=== PATIENT | female | born 1955 | race Caucasian/White ===

== ENCOUNTER 2017-03-09 14:59 | Emergency (ER) | payer MEDICARE, OTHER ==
[2017-03-09 15:06] VITALS: BP 146/84
[2017-03-09] MEDS ORDERED: Prochlorperazine 10 MG in Sodium Chloride 0.9% 50 ML IV ONE (15:22)
[2017-03-09] MEDS ORDERED: Ondansetron 4 MG/2 ML SDV IVPUSH ONE (15:22)
[2017-03-09] MEDS ORDERED: Sodium Chloride 0.9% 1,000 ML IV ONE (15:22)
[2017-03-09] MEDS ORDERED: Ketorolac 30 MG/ML SDV IVPUSH ONE (15:22)
[2017-03-09] MEDS ORDERED: diphenhydrAMINE 50 MG/ML SDV IVPUSH ONE (15:22)
--- NOTE | 2017-03-09 15:28 | EDM.PDOC ---
<Reena Jean Baptiste - Last Filed: 03/09/17 15:47> ED HPI GENERAL MEDICAL PROBLEM - General Chief Complaint: Headache Stated Complaint: MIGRAINE Time Seen by Provider: 03/09/17 15:07 Source of Information: Reports: Patient History Limitations: Reports: No Limitations - History of Present Illness INITIAL COMMENTS - FREE TEXT/NARRATIVE: The patient is a 61-year-old female with a chief complaint of headache. She has a history of migraines and also of chronic back pain. She states that she started to feel a little uncomfortable yesterday and then her headache got much worse today. Describes it as throbbing. It's in the front of her head. Pain is severe. She has some associated nausea and has had many episodes of vomiting. States she is unable to keep any medications down at home. No fever. No weakness. No neck stiffness. States it feels like a migraine but worse. There is no clear provoking factor. States that she has had a mild cough and a mild stuffy nose. Hasn't had a migraine in about 3 years. Headache Pain Score (Numeric/FACES): 10 - Related Data Allergies Allergy/AdvReac Type Severity Reaction Status Date / Time Sulfa (Sulfonamide Allergy Hives Verified 10/14/15 13:08 Antibiotics) bupropion HCl AdvReac Tremors Verified 10/14/15 13:08 [From Wellbutrin] ibuprofen AdvReac Bleeding Verified 10/14/15 13:08 Home Meds: Home Meds Methocarbamol 2 tab PO TID 12/13/13 [History] Promethazine [Phenergan] 25 mg PO Q6HR PRN 12/18/13 [History] DULoxetine [Cymbalta] 120 mg PO DAILY 01/08/14 [History] Acetaminophen [Tylenol Arthritis Pain] 3 tab PO BID PRN 04/22/15 [History] Buprenorphine HCl/Naloxone HCl [Suboxone 4 mg-1 mg Sl Film] 1 tab SL DAILY 04/22 [History] Multivitamin [Daily Multiple Vitamin] 1 tab PO DAILY 04/22/15 [History] PARoxetine [Paxil] 30 mg PO DAILY 04/22/15 [History] Lidocaine 1 patch TOP DAILY 03/09/17 [History] Non-Formulary Medication [NF Drug] 1 dose TOP DAILY 03/09/17 [History] Prednisone [IJD: Prednisone] 10 mg PO DAILY 03/09/17 [History] cloNIDine [Catapres] 0.1 mg PO BID 03/09/17 [History] Past Medical History Gastrointestinal History: Reports: [employer] History: Reports: Fibroids Other OB/BYN History: uterine fibroids, endometriosis Musculoskeletal History: Reports: Back Pain, Chronic Other Musculoskeletal History: spinal stenosis, degenerative disks, right lateral shoulder tear Neurological History: Reports: Migraines, Neuropathy, Peripheral Other Neuro History: neuropathic pain Psychiatric History: Reports: Anxiety, Depression Other Psychiatric History: chronic pain syndrome Oncologic (Cancer) History: Reports: Other (See Below) Other Oncologic History: precancerous lesions Dermatologic History: Reports: Other (See Below) Other Dermatologic History: herpes labialsis - Infectious Disease History Infectious Disease History: Reports: Herpes - Past Surgical History GI Surgical History: Reports: Cholecystectomy Female Surgical History: Reports: Hysterectomy Social & Family History - Family History Family Medical History: Noncontributory Respiratory: Reports: COPD - Tobacco Use Smoking Status *Q: Current Every Day Smoker Years of Tobacco use: 8 Packs/Tins Daily: 1 Used Tobacco, but Quit: No Second Hand Smoke Exposure: Yes - Alcohol Use Days Per Week of Alcohol Use: 0 (etoh abuse in past. none for 30 years) - Recreational Drug Use Recreational Drug Use: No Drug Use in Last 12 Months: No Recreational Drug Type: Reports: Marijuana/Hashish Recreational Drug Use Frequency: Not Used In Over 6 Months ED ROS GENERAL - Review of Systems Review Of Systems: See Below Constitutional: Reports: No Symptoms. Denies: Fever HEENT: Reports: Rhinitis Respiratory: Reports: Cough Cardiovascular: Reports: No Symptoms Endocrine: Reports: No Symptoms GI/Abdominal: Reports: Nausea, Vomiting. Denies: Abdominal Pain : Reports: No Symptoms Neurological: Reports: Headache. Denies: Paresthesia, Weakness - Physical Exam Exam: See Below Exam Limited By: No Limitations General Appearance: Alert, WD/WN, Moderate Distress Eye Exam: Bilateral Eye: EOMI, PERRL Ears: Normal External Exam Nose: Normal Inspection Throat/Mouth: Normal Inspection, Normal Oropharynx, Normal Voice, No Airway Compromise Head Exam: Atraumatic, Normocephalic Neck: Normal Inspection Respiratory/Chest: No Respiratory Distress, Lungs Clear, Normal Breath Sounds Cardiovascular: Normal Peripheral Pulses, Regular Rate, Rhythm, No Murmur GI/Abdominal: Soft, Non-Tender, No Distention. No: Rebound Neuro Exam (Abbreviated): Alert, Oriented, CN II-XII Intact, Normal Cognition, No Motor/Sensory Deficits Extremities: Normal Inspection Psychiatric: Normal Affect, Normal Mood Skin Exam: Warm, Dry, Intact, Normal Color, No Rash Course - Vital Signs Last Recorded V/S: Last Vital Signs Temp 97.7 F 03/09/17 15:03 Pulse 90 03/09/17 15:03 Resp 16 03/09/17 15:03 BP 146/84 H 03/09/17 15:03 Pulse Ox 99 03/09/17 15:03 - Orders/Labs/Meds Meds: Medications Discontinued Medications Generic Name Dose Route Start Last Admin Trade Name Claudia PRN Reason Stop Dose Admin Diphenhydramine HCl 25 mg 03/09/17 15:22 03/09/17 15:39 Benadryl IVPUSH 03/09/17 15:23 25 mg ONETIME ONE Administration Prochlorperazine Edisylate 10 52 mls @ 150 mls/hr 03/09/17 15:22 03/09/17 15: 43 mg/ Sodium Chloride IV 03/09/17 15:42 150 mls/hr ONETIME ONE Administration Sodium Chloride 1,000 mls @ 1,000 mls/hr 03/09/17 15:22 03/09/17 15:44 Normal Saline IV 03/09/17 16:21 1,000 mls/hr ONETIME ONE Administration Ketorolac Tromethamine 30 mg 03/09/17 15:22 03/09/17 15:40 Toradol IVPUSH 03/09/17 15:23 30 mg ONETIME ONE Administration Ondansetron HCl 4 mg 03/09/17 15:22 03/09/17 15:42 Zofran IVPUSH 03/09/17 15:23 4 mg ONETIME ONE Administration - Re-Assessments/Exams Free Text/Narrative Re-Assessment/Exam: 03/09/17 15:[address] Carola Jean Baptiste at 1600. Medications ordered, awaiting reevaluation after medications. Departure - Departure Disposition: Home, Self-Care 01 Clinical Impression: Migraine - Discharge Information Instructions: Migraine Headache, [id number] Referrals: Amanda Gay NP [Primary Care Provider] - Forms: ED Department Discharge Additional Instructions: Follow up with your primary doctor for further care as needed. Return to the Emergency Department if you have severe headache that doesn't improve with your usual pain medications or any new concerning symptoms, such as fever, vomiting without keeping liquids down, weakness, confusion, or any other concerning symptoms. <Adan Jean Baptiste - Last Filed: 03/09/17 16:37> Course - Re-Assessments/Exams Free Text/Narrative Re-Assessment/Exam: 03/09/17 16:36. Have assumed care from Dr Tanisha Jean Baptiste after change of shift a short time ago. I agree with her hx and exam as documented. Pt is starting to feel much better, Owens is almost gone, nausea, vomiting has resolved. She feels up to going home. Discharge instr. as documented. Departure - Departure Time of Disposition: 16:35
== END 2017-03-09 16:40 | disposition home or self-care (01) ==
LOC: JD.ED 14:59
DX: G43.909 Migraine, unspecified, not intractable, without status migrainosus (principal); F17.210 Nicotine dependence, cigarettes, uncomplicated; Z88.2 Allergy status to sulfonamides; Z88.8 Allergy status to other drugs, medicaments and biological substances
CPT/HCPCS: 96365; 96375; 99284; J0780; J1200; J1885; J2405; J7040; J7050

== ENCOUNTER 2019-05-04 04:17 | Inpatient (IN) | payer MEDICARE, BC ==
[2019-05-04] MEDS ORDERED: Lactated Ringers 1,000 ML IV ONE (04:44)
[2019-05-04] MEDS ORDERED: LORazepam 2 MG/ML SDV IVPUSH STA (04:45)
[2019-05-04] MEDS ORDERED: Loperamide 2 MG Cap PO STA (04:45)
[2019-05-04] MEDS ORDERED: Dicyclomine 20 MG/2 ML SDV IM ONE (04:52)
--- NOTE | 2019-05-04 04:52 | EDM.PDOC ---
ED HPI GENERAL MEDICAL PROBLEM - General Chief Complaint: Abdominal Pain Stated Complaint: [facility] Time Seen by Provider: 05/04/19 04:29 Source of Information: Reports: Patient History Limitations: Reports: Physical Impairment (Patient hyperventilating) - History of Present Illness INITIAL COMMENTS - FREE TEXT/NARRATIVE: Ms. Gaviria is a 63 year-old woman with a past medical history significant for lumbar degenerative disc disease, spinal stenosis, chronic low back pain, and chronic pain, for which she is treated with Suboxone, and anxiety/depression, for which she is treated with Paxil, who now presents to the ED stating that she developed nausea, vomiting, diarrhea, abdominal cramps, generalized weakness , and pain everywhere, around midnight. She estimates that she has had 6 episodes of watery diarrhea, including here in the ED. She did not take any medications prior to calling 911. EMS started an IV, gave her some IV fluid, and 4 mg of IV Zofran. Here in the ED, the patient appears to be hyperventilating, and obtaining a reliable past medical history is difficult, as the patient is reluctant to answer questions. Her oxygen saturation is 100% on room air. She keeps her eyes squeezed closed and appears to be tightening all of the muscles in her neck and face, plus many in her body, including her abdomen. She did not seem to heed suggestions to try to calm herself. She denies recently eating any bad tasting or smelling food, having similarly ill close contacts, or recent travel. She states, however, that she finished a 10-day course of amoxicillin last week, prescribed to treat a dental infection. The patient's PCP is Amanda Gay NP. Her pain food manager is Dr. Tovar. Bilateral Leg Pain Score (Numeric/FACES): 9 - Related Data Allergies Allergy/AdvReac Type Severity Reaction Status Date / Time Sulfa (Sulfonamide Allergy Hives Verified 10/14/15 13:08 Antibiotics) bupropion HCl AdvReac Tremors Verified 10/14/15 13:08 [From Wellbutrin] ibuprofen AdvReac Bleeding Verified 10/14/15 13:08 Home Meds: Home Meds Methocarbamol 2 tab PO TID 12/13/13 [History] Promethazine [Phenergan] 25 mg PO Q6HR PRN 12/18/13 [History] DULoxetine [Cymbalta] 120 mg PO DAILY 01/08/14 [History] Acetaminophen [Tylenol Arthritis Pain] 3 tab PO BID PRN 04/22/15 [History] Buprenorphine HCl/Naloxone HCl [Suboxone 4 mg-1 mg Sl Film] 1 tab SL DAILY 04/22 [History] Multivitamin [Daily Multiple Vitamin] 1 tab PO DAILY 04/22/15 [History] PARoxetine [Paxil] 20 mg PO DAILY 04/22/15 [History] Prednisone [IJD: Prednisone] 10 mg PO DAILY 03/09/17 [History] cloNIDine [Catapres] 0.1 mg PO BID 03/09/17 [History] Past Medical History Cardiovascular History: Reports: High Cholesterol (untreated) Gastrointestinal History: Reports: [employer] History: Reports: Endometriosis (suspected), Fibroids Musculoskeletal History: Reports: Back Pain, Chronic (DDD, spinal stenosis), Neck Pain, Chronic Neurological History: Reports: Migraines, Neuropathy, Peripheral Psychiatric History: Reports: Addiction (opioids, alcohol), Anxiety, Depression , Other (See Below) (chronic pain syndrome) - Infectious Disease History Infectious Disease History: Reports: Herpes - Past Surgical History GI Surgical History: Reports: Cholecystectomy, Colonoscopy (x 2), EGD (x 1) Female Surgical History: Reports: Hysterectomy Neurological Surgical History: Reports: C-Spine (ACDF x 1), Lumbar Spine (x 4) Social & Family History - Family History Family Medical History: Noncontributory Respiratory: Reports: COPD - Tobacco Use Smoking Status *Q: Current Every Day Smoker Years of Tobacco use: 54 Packs/Tins Daily: 1 Packs/Tins Daily Comment: Down from 2 ppd - Alcohol Use Alcohol Use History: Yes Date/Time of Last Drink Comment: Alcoholic, sober since 1985 - Recreational Drug Use Recreational Drug Use: Yes Drug Use in Last 12 Months: No Recreational Drug Type: Reports: Marijuana/Hashish (last smoked in 20s) - Living Situation & Occupation Living situation: Reports: , Alone Occupation: Unemployed ED ROS GENERAL - Review of Systems Review Of Systems: Comprehensive ROS is negative, except as noted in HPI. ED EXAM, GI/ABD - Physical Exam Exam: See Below Exam Limited By: Physical Impairment (patient won't relax abdomen) General Appearance: Alert, Anxious Eyes: Bilateral: Normal Appearance, EOMI Ears: Normal External Exam, Hearing Grossly Normal Nose: Normal Inspection Throat/Mouth: Normal Inspection, Normal Lips, Normal Voice, No Airway Compromise Head: Atraumatic, Normocephalic Neck: Normal Inspection, Full Range of Motion Respiratory/Chest: No Respiratory Distress, Lungs Clear, Normal Breath Sounds, No Accessory Muscle Use Cardiovascular: Normal Peripheral Pulses, No Edema, No Gallop, No JVD, No Murmur , No Rub, Tachycardia (regular) GI/Abdominal Exam: Normal Bowel Sounds, Soft, No Organomegaly, No Distention, No Abnormal Bruit, No Mass, Tender (generalized, non-focal) (Female) Exam: Deferred Rectal (Female) Exam: Deferred Extremities: Normal Inspection, Normal Range of Motion, No Pedal Edema, Normal Capillary Refill Neurological: Alert, Oriented, Normal Cognition, No Motor/Sensory Deficits Psychiatric: Anxious Skin Exam: Warm, Dry, Intact, Normal Color, No Rash Course - Vital Signs Last Recorded V/S: Last Vital Signs Temp 37.1 C 05/04/19 04:26 Pulse 110 H 05/04/19 04:26 Resp 24 H 05/04/19 04:26 BP 119/76 05/04/19 04:26 Pulse Ox 100 05/04/19 04:26 - Orders/Labs/Meds Orders: Active Orders 24 hr Category Date Time Status C DIFFICILE PCR W/REFLEX [MOLEC] Stat Lab 05/04/19 04:47 Ordered Magnesium Sulfate/Water [Magnesium Sulfate in Water Med 05/04/19 06:03 Active Premix] 2 gm Premix Bag 1 bag IV ONETIME Medication Orders Magnesium Sulfate 2 gm/ Premix 50 mls @ 50 mls/hr IV ONETIME ONE Stop: 05/04/19 07:02 Last Admin: 05/04/19 06:16 Dose: 50 mls/hr Labs: Laboratory Tests 05/04/19 05/04/19 Range/Units 05:11 05:11 WBC 6.18 (3.98-10.04) K/mm3 RBC 5.38 H (3.98-5.22) M/mm3 Hgb 16.6 H D (11.2-15.7) gm/dl Hct 51.4 H (34.1-44.9) % MCV 95.5 H (79.4-94.8) fl MCH 30.9 (25.6-32.2) pg MCHC 32.3 (32.2-35.5) g/dl RDW Std Deviation 44.6 (36.4-46.3) fL Plt Count 247 (182-369) K/mm3 MPV 8.6 L (9.4-12.3) fl Neutrophils % (Manual) 79 H (40-60) % Band Neutrophils % 0 (0-10) % Lymphocytes % (Manual) 15 L (20-40) % Atypical Lymphs % 0 % Monocytes % (Manual) 3 (2-10) % Eosinophils % (Manual) 3 (0.7-5.8) % Basophils % (Manual) 0 L (0.1-1.2) Platelet Estimate Adequate RBC Morph Comment Normal Sodium 141 (136-145) mEq/L Potassium 3.8 (3.5-5.1) mEq/L Chloride 105 (98-107) mEq/L Carbon Dioxide 26 (21-32) mEq/L Anion Gap 13.8 (5-15) BUN 25 H (7-18) mg/dL Creatinine 0.9 (0.55-1.02) mg/dL Est Cr Clr Drug Dosing 65.38 mL/min Estimated GFR (MDRD) > 60 (>60) mL/min BUN/Creatinine Ratio 27.8 H (14-18) Glucose 166 H (80-115) mg/dL Calcium 8.9 (8.5-10.1) mg/dL Magnesium 1.5 L (1.8-2.4) mg/dl Total Bilirubin 0.5 (0.2-1.0) mg/dL AST 34 (15-37) U/L ALT 34 (14-59) U/L Alkaline Phosphatase 81 (46-116) U/L Total Protein 6.8 (6.4-8.2) g/dl Albumin 3.6 (3.4-5.0) g/dl Globulin 3.2 gm/dL Albumin/Globulin Ratio 1.1 (1-2) Lipase 79 (73-393) U/L Meds: Medications Generic Name Dose Route Start Last Admin Trade Name Freq PRN Reason Stop Dose Admin Magnesium Sulfate 2 gm/ Premix 50 mls @ 50 mls/hr 05/04/19 06:03 05/04/19 06: 16 IV 05/04/19 07:02 50 mls/hr ONETIME ONE Administration Discontinued Medications Generic Name Dose Route Start Last Admin Trade Name Claudia PRN Reason Stop Dose Admin Dicyclomine HCl 20 mg 05/04/19 04:52 05/04/19 05:03 Bentyl IM 05/04/19 04:53 20 mg ONETIME ONE Administration Lactated Ringer's 1,000 mls @ 999 mls/hr 05/04/19 04:44 05/04/19 04:55 Ringers, Lactated IV 05/04/19 05:44 999 mls/hr .BOLUS ONE Administration Loperamide HCl 4 mg 05/04/19 04:45 05/04/19 04:53 Imodium PO 05/04/19 04:46 4 mg ONETIME STA Administration Lorazepam 1 mg 05/04/19 04:45 05/04/19 04:56 Ativan IVPUSH 05/04/19 04:46 1 mg ONETIME STA Administration - Re-Assessments/Exams Free Text/Narrative Re-Assessment/Exam: 05/04/19 04:47 The patient appears to be suffering from gastroenteritis, which could be related to the amoxicillin that she finished last week, therefore I ordered a stool for C. difficile, in addition to some blood work to look for signs of significant fluid or electrolyte shifts as a result of her diarrhea. In the meantime, patient will be given some IV fluid and loperamide. She was given Zofran by EMS. I will also order some Bentyl IM to treat her abdominal cramps. The patient is clearly hyperventilating, which is exacerbating her symptoms. I will order IV Ativan. 05/04/19 06:04 The patient's CBC is remarkable for a H/H mildly elevated at 16.6/51.4, with the remainder of her CBC being unremarkable. Her CMP is remarkable for a BUN being mildly elevated at 25 with a creatinine being normal at 0.9. Her blood glucose is elevated at 166, with the remainder of her CMP being unremarkable. Her magnesium level is depressed at 1.5. Her lipase is normal at 79. I have ordered a 2 g Mg-rider. 05/04/19 06:37 I attempted to acquire additional past medical, surgical, and social history, without much success. The patient is saying that she doesn't feel good and would like something for pain, yet moments later she fell asleep. I had to wake her or re-ask a question several times. I think the patient will need to be placed into observation. The patient has not been able to provide a stool sample during her ED visit. 05/04/19 06:[address] Walker at 06:43. He agreed to place the patient into observation until such time as she is more alert and fit to go home. Departure - Departure Time of Disposition: 06:48 Disposition: Refer to Observation Condition: Good Clinical Impression: Gastroenteritis, Hypomagnesemia - Discharge Information *PRESCRIPTION DRUG MONITORING PROGRAM REVIEWED*: Not Applicable *COPY OF PRESCRIPTION DRUG MONITORING REPORT IN PATIENT MALLIKA: Not Applicable Referrals: Amanda Gay NP [Primary Care Provider] - Max Tovar DO [Ordering Only Provider] - Forms: ED Department Discharge Sepsis Event Note - Evaluation Sepsis Screening Result: No Definite Risk - Focused Exam Vital Signs: Vital Signs Temp Pulse Resp BP Pulse Ox 05/04/19 04:26 37.1 C 110 H 24 H 119/76 100 Date Exam was Performed: 05/04/19 Time Exam was Performed: 06:37 - My Orders Last 24 Hours: My Active Orders 05/04/19 04:47 C DIFFICILE PCR W/REFLEX [MOLEC] Stat 05/04/19 06:03 Magnesium Sulfate/Water [Magnesium Sulfate in Water Premix] 2 gm Premix Bag 1 bag IV ONETIME - Assessment/Plan Last 24 Hours: My Active Orders 05/04/19 04:47 C DIFFICILE PCR W/REFLEX [MOLEC] Stat 05/04/19 06:03 Magnesium Sulfate/Water [Magnesium Sulfate in Water Premix] 2 gm Premix Bag 1 bag IV ONETIME
[2019-05-04] MEDS ORDERED: Magnesium Sulfate/Water 2 GM in Premix Bag 1 BAG IV ONE ×2 (06:03→09:03)
[2019-05-04] MEDS ORDERED: Methocarbamol 500 MG Tab PO SCH (12:00)
[2019-05-04] MEDS ORDERED: Loperamide 2 MG Cap PO PRN (12:07)
[2019-05-04] MEDS ORDERED: Ondansetron 4 MG/2 ML SDV IV PRN (12:07)
[2019-05-04] MEDS ORDERED: Acetaminophen 325 MG Tab PO PRN (12:07)
--- NOTE | 2019-05-04 12:07 | PCM.HP.2 ---
H&P History of Present Illness - General Date of Service: 05/04/19 Admit Problem/Dx: Admission Diagnosis/Problem Admission Diagnosis/Problem Vomiting - History of Present Illness Initial Comments - Free Text/Narative: 63-year-old patient with chronic low back pain from failed back surgery presented to the emergency room via EMS secondary to 6 episodes of watery diarrhea. Patient takes Suboxone chronically and only had 1 dose yesterday. She states she takes 2-2-1/2 doses a day. She did not take any medication before calling 911 and did not bring any medications with her. In the emergency room she stated that she had nausea, vomiting, diarrhea, abdominal cramps, generalized weakness, and pain everywhere. Patient was an unreliable historian in the emergency room secondary to hyperventilation, patient has a history of anxiety and depression, and when I visited with her this morning she also was a poor historian secondary to pain due to muscle spasms everywhere. Of note patient recently finished a 10-day course of amoxicillin. Stool for C. difficile was obtained in the emergency room which was negative. Patient denies anyone having similar symptoms. She denies any recent travel. Patient is also very erythematous from head down to mid upper thigh. This does not include the extremities. When asked that this is normal for her she did not answer x2. In the emergency room patient was given 1 mg of Ativan secondary to anxiety. Unfortunately, this caused sedation which prompted the observation transfer. Now the patient is in severe pain and has no one to take her home. She was also given loperamide, dicyclomine, and 1 L lactated Ringer's in the emergency room. Labs in the emergency room: WBC 6.18, hemoglobin 16.6, platelets 247, sodium 141 , potassium 3.8, chloride 105, carbon dioxide 26, anion gap 13.8, BUN 25, creatinine 0.9, glucose 166, magnesium 1.5 (was given to grams magnesium in the emergency room), normal liver function and lipase, normal UA. Bilateral Leg Pain Score (Numeric/FACES): 9 - Related Data Allergies/Adverse Reactions: Allergies Allergy/AdvReac Type Severity Reaction Status Date / Time Sulfa (Sulfonamide Allergy Hives Verified 10/14/15 13:08 Antibiotics) bupropion HCl AdvReac Tremors Verified 10/14/15 13:08 [From Wellbutrin] ibuprofen AdvReac Bleeding Verified 10/14/15 13:08 Home Medications: Home Meds Methocarbamol 2 tab PO TID 12/13/13 [History] Promethazine [Phenergan] 25 mg PO Q6HR PRN 12/18/13 [History] DULoxetine [Cymbalta] 120 mg PO DAILY 01/08/14 [History] Acetaminophen [Tylenol Arthritis Pain] 3 tab PO BID PRN 04/22/15 [History] Buprenorphine HCl/Naloxone HCl [Suboxone 4 mg-1 mg Sl Film] 2.5 tab SL DAILY 09/30 [History] Multivitamin [Daily Multiple Vitamin] 1 tab PO DAILY 04/22/15 [History] PARoxetine [Paxil] 20 mg PO DAILY 04/22/15 [History] Prednisone [IJD: Prednisone] 10 mg PO DAILY 03/09/17 [History] cloNIDine [Catapres] 0.1 mg PO TID 03/09/17 [History] Past Medical History HEENT History: Reports: None Cardiovascular History: Reports: High Cholesterol Gastrointestinal History: Reports: PUD Genitourinary History: Reports: None [employer] History: Reports: Endometriosis, Fibroids, Other OB/BYN History: uterine fibroids, endometriosis Musculoskeletal History: Reports: Arthritis, Back Pain, Chronic, Neck Pain, Chronic Other Musculoskeletal History: spinal stenosis, degenerative disks, right lateral shoulder tear Neurological History: Reports: Migraines, Neuropathy, Peripheral Other Neuro History: neuropathic pain Psychiatric History: Reports: Addiction, Anxiety, Depression, Other (See Below) Other Psychiatric History: chronic pain syndrome Endocrine/Metabolic History: Reports: None Hematologic History: Reports: None Oncologic (Cancer) History: Reports: Other (See Below) Other Oncologic History: precancerous lesions on bilateral arms/legs Dermatologic History: Reports: Other (See Below) Other Dermatologic History: herpes labialsis - Infectious Disease History Infectious Disease History: Reports: Measles - Past Surgical History GI Surgical History: Reports: Cholecystectomy, Colonoscopy, EGD Female Surgical History: Reports: Breast Biopsy, Hysterectomy Neurological Surgical History: Reports: C-Spine, Lumbar Spine Social & Family History - Family History Family Medical History: Noncontributory Respiratory: Reports: COPD - Tobacco Use Smoking Status *Q: Current Every Day Smoker Years of Tobacco use: 10 Packs/Tins Daily: 1 - Caffeine Use Caffeine Use: Reports: Coffee, Soda - Alcohol Use Date of Last Drink: 04/22/85 - Recreational Drug Use Recreational Drug Use: Yes Drug Use in Last 12 Months: No Recreational Drug Type: Reports: Marijuana/Hashish (last smoked in 20s) Other Recreational Drug Type: stated she used cocaine in the - Living Situation & Occupation Living situation: Reports: , Alone Occupation: Unemployed H&P Review of Systems - Review of Systems: Review Of Systems: Unable To Obtain Reason Not Obtained: Due to pain Exam - Exam Exam: See Below - Vital Signs Vital Signs: Last Vital Signs Temp 99.5 F 05/04/19 11:37 Pulse 115 H 05/04/19 11:37 Resp 20 05/04/19 11:37 BP 123/70 05/04/19 11:37 Pulse Ox 99 05/04/19 11:37 Weight: 139 lb 11.2 oz - Exam Quality Assessment: No: Supplemental Oxygen General: Alert HEENT: Conjunctiva Clear, Mucosa Moist & [place] (But dry) Neck: Supple, Trachea Midline, 2 Lungs: Clear to Auscultation, Normal Respiratory Effort Cardiovascular: Regular Rate, Regular Rhythm GI/Abdominal Exam: Normal Bowel Sounds, Soft, Non-Tender, No Organomegaly, No Distention Back Exam: Normal Inspection, Full Range of Motion Extremities: Normal Inspection, Normal Range of Motion, Non-Tender, No Pedal Edema, Normal Capillary Refill Skin: Warm, Dry, Intact, Rash (Erythematous rash, almost appearing when blown, on her face, chest, and upper legs. Spares arms.) Neurological: Cranial Nerves Intact Neuro Extensive - Mental Status: Alert, Oriented x3. No: Normal Mood/Affect ( Very anxious) Psychiatric: Anxious, Agitated - Patient Data Lab Results Last 24 hrs: Laboratory Results - last 24 hr 05/04/19 05/04/19 05/04/19 Range/Units 05:11 05:11 08:10 WBC 6.18 (3.98-10.04) K/mm3 RBC 5.38 H (3.98-5.22) M/mm3 Hgb 16.6 H D (11.2-15.7) gm/dl Hct 51.4 H (34.1-44.9) % MCV 95.5 H (79.4-94.8) fl MCH 30.9 (25.6-32.2) pg MCHC 32.3 (32.2-35.5) g/dl RDW Std Deviation 44.6 (36.4-46.3) fL Plt Count 247 (182-369) K/mm3 MPV 8.6 L (9.4-12.3) fl Neutrophils % (Manual) 79 H (40-60) % Band Neutrophils % 0 (0-10) % Lymphocytes % (Manual) 15 L (20-40) % Atypical Lymphs % 0 % Monocytes % (Manual) 3 (2-10) % Eosinophils % (Manual) 3 (0.7-5.8) % Basophils % (Manual) 0 L (0.1-1.2) Platelet Estimate Adequate RBC Morph Comment Normal Sodium 141 (136-145) mEq/L Potassium 3.8 (3.5-5.1) mEq/L Chloride 105 (98-107) mEq/L Carbon Dioxide 26 (21-32) mEq/L Anion Gap 13.8 (5-15) BUN 25 H (7-18) mg/dL Creatinine 0.9 (0.55-1.02) mg/dL Est Cr Clr Drug Dosing 65.38 mL/min Estimated GFR (MDRD) > 60 (>60) mL/min BUN/Creatinine Ratio 27.8 H (14-18) Glucose 166 H (80-115) mg/dL Calcium 8.9 (8.5-10.1) mg/dL Magnesium 1.5 L (1.8-2.4) mg/dl Total Bilirubin 0.5 (0.2-1.0) mg/dL AST 34 (15-37) U/L ALT 34 (14-59) U/L Alkaline Phosphatase 81 (46-116) U/L Total Protein 6.8 (6.4-8.2) g/dl Albumin 3.6 (3.4-5.0) g/dl Globulin 3.2 gm/dL Albumin/Globulin Ratio 1.1 (1-2) Lipase 79 (73-393) U/L C.difficile [id number] Presumptive negative C. difficile Tox (PCR) Negative Result Diagrams: 05/04/19 05:11 05/04/19 05:11 Sepsis Event Note - Evaluation Sepsis Screening Result: No Definite Risk - Focused Exam Vital Signs: Vital Signs Temp Temp Pulse Pulse Resp BP BP 05/04/19 11:37 99.5 F 115 H 20 123/70 05/04/19 08:26 98.2 F 112 H 119/75 05/04/19 07:15 100.0 F 124 H 20 121/64 05/04/19 04:26 98.8 F 110 H 24 H 119/76 Pulse Ox 05/04/19 11:37 99 05/04/19 08:26 94 L 05/04/19 07:15 96 05/04/19 04:26 100 Date Exam was Performed: 05/04/19 Time Exam was Performed: 14:25 Problem List Initiated/Reviewed/Updated: Yes Orders Last 24hrs: Active Orders 24 hr Category Date Time Status Patient Status [ADT] Routine ADT 05/04/19 07:26 Active OT Evaluation and Treatment [CONS] Routine Cons 05/04/19 09:44 Active PT Evaluation and Treatment [CONS] Routine Cons 05/04/19 09:44 Active Acetaminophen/oxyCODONE [Percocet 325-5 MG] Med 05/04/19 12:00 Ordered 1 tab PO Q4H PRN Buprenorphine HCl/Naloxone HCl [Suboxone 4 mg-1 mg Sl Med 05/04/19 11:45 Ordered Film] 2.5 tab SL DAILY DULoxetine Med 05/05/19 09:00 Ordered 120 mg PO DAILY Methocarbamol [Robaxin] Med 05/04/19 12:00 Ordered 1,500 mg PO TID Multivitamins Med 05/05/19 09:00 Ordered 1 tab PO DAILY PARoxetine [Paxil] Med 05/04/19 11:45 Ordered 20 mg PO DAILY Promethazine [Phenergan] Med 05/04/19 11:36 Ordered 25 mg PO Q6HR PRN cloNIDine [Catapres] Med 05/04/19 15:00 Ordered 0.1 mg PO TID Code Status [Resuscitation Status] Routine Resus Stat 05/04/19 12:02 Ordered Medication Orders Clonidine HCl (Catapres) 0.1 mg PO TID MOE Methocarbamol (Robaxin) 1,500 mg PO TID MOE Non-Formulary Medication (Buprenorphine Hcl/Naloxone Hcl [Suboxone 4 Mg-1 Mg Sl Film]) 2.5 tab SL DAILY MOE Non-Formulary Medication (Duloxetine) 120 mg PO DAILY MOE Non-Formulary Medication (Multivitamins) 1 tab PO DAILY MOE Non-Formulary Medication (Paroxetine [Paxil]) 20 mg PO DAILY MOE Non-Formulary Medication (Promethazine [Phenergan]) 25 mg PO Q6HR PRN PRN Reason: Nausea Oxycodone/Acetaminophen (Percocet 325-5 Mg) 1 tab PO Q4H PRN PRN Reason: Pain (moderate 4-6) Assessment/Plan Comment:: Assessment * Gastroenteritis * Presented with multiple bouts of diarrhea. Was given Imodium and Bentyl in the emergency room. * 1 diarrheal stool this morning * Negative C. difficile * Chronic low back pain * On Suboxone and methocarbamol at home * Unable to get home meds * Muscle spasms * Likely secondary to missing medications over the last 24 hours. Plan * Observation * Restart methocarbamol 1500 mg 3 times daily for muscle spasms * Percocet 5/325 1 tab every 4 hour for pain * LR at 125 mL an hour * Loperamide as needed * Zofran as needed * Advance diet as tolerated * Magnesium 2 g IV x1 * Patient should be able to go home as soon as muscle spasms are under control and she is able to get a ride home. - Mortality Measure Prognosis:: Good
[2019-05-04] MEDS ORDERED: Lactated Ringers 1,000 ML IV SCH ×3 (12:15→23:00)
[2019-05-04] MEDS ORDERED: Methocarbamol 500 MG Tab PO ONE ×2 (12:30→20:00)
[2019-05-04] MEDS: DULoxetine 30 MG Cap PO SCH (12:42)
[2019-05-04] MEDS: PARoxetine 20 MG Tab PO SCH (12:43)
[2019-05-04] MEDS ORDERED: METHOCARBAMOL PO SCH (15:00)
[2019-05-04] MEDS: cloNIDine 0.1 MG Tab PO SCH ×2 (15:25→20:37)
[2019-05-04] MEDS ORDERED: Sodium Chloride 0.9% 1,000 ML IV ONE ×2 (15:41→15:57)
[2019-05-04] MEDS: Acetaminophen/oxyCODONE 325-5 MG Tab PO PRN ×2 (15:59→20:38)
[2019-05-04] MEDS ORDERED: Oseltamivir 75 MG Cap PO ONE (16:10)
--- NOTE | 2019-05-04 16:23 | PCM.SN ---
- Free Text/Narrative Note: Called by nursing secondary to patient having a fever of over 101. Patient is also tachycardic with a heart rate between 100 and 115. Mean arterial pressure is greater than 65. IV bolus was ordered, lactic acid, Tylenol, blood cultures, CBC, CMP, CRP, CXR, UA, Rocephin 2 g IV, Tamiflu, and flu swab were all ordered. Patient be switched to inpatient.
[2019-05-04] MEDS ORDERED: cefTRIAXone 2 GM in Sodium Chloride 0.9% 100 ML IV ONE (16:54)
--- NOTE | 2019-05-04 16:58 | CR ---
Chest: Portable view of the chest was obtained. Comparison: Prior chest x-ray is not available. Heart size is normal. Upper mediastinum is normal. Lungs are clear. Previous cervical spine surgery is noted. No acute bony abnormality is appreciated. Impression: 1. Nothing acute is seen on portable chest x-ray. Diagnostic code #1 This report was dictated in [place] Standard Time
[2019-05-04] MEDS: BUPRENORPHINE HCL SL SCH (20:48)
[2019-05-04] MEDS: NALOXONE HCL SL SCH (20:48)
[2019-05-04] MEDS: Promethazine 25 MG Tab PO PRN (20:48)
[2019-05-05] MEDS: Acetaminophen/oxyCODONE 325-5 MG Tab PO PRN ×6 (00:12→23:09)
[2019-05-05] MEDS ORDERED: Methocarbamol 500 MG Tab PO SCH (05:00)
[2019-05-05] MEDS: BUPRENORPHINE HCL SL SCH ×2 (07:43→08:02)
[2019-05-05] MEDS: NALOXONE HCL SL SCH ×2 (07:43→08:02)
[2019-05-05] MEDS: DULoxetine 30 MG Cap PO SCH (09:34)
[2019-05-05] MEDS: cloNIDine 0.1 MG Tab PO SCH ×3 (09:35→21:05)
[2019-05-05] MEDS: PARoxetine 20 MG Tab PO SCH (09:35)
[2019-05-05] MEDS: Multivitamins,Therapeutic Tab PO SCH (09:35)
[2019-05-05] MEDS: Methocarbamol 500 MG Tab PO SCH ×3 (10:01→23:08)
[2019-05-05] MEDS: Lactated Ringers 1,000 ML IV SCH (10:14)
[2019-05-05] MEDS: oxyCODONE 5 MG Tab PO PRN ×3 (11:09→21:06)
--- NOTE | 2019-05-05 13:44 | PCM.PN ---
- General Info Date of Service: 05/05/19 Admission Dx/Problem (Free Text): Admission Diagnosis/Problem Admission Diagnosis/Problem Vomiting Subjective Update: Initially patient was found have a fever 101.7 and IV fluid was given as well as antibiotics. Initial lactic acid was elevated at 2.3 but subsequently is normal. Patient continues to have severe muscle spasms and Percocet, methocarbamol, and Suboxone are not relieving her pain. Patient is allergic to ibuprofen. She has not had a fever since then. Blood cultures were taken, chest x-ray, and UA. All of those have been negative so far. Functional Status: Denies: Pain Controlled - Review of Systems General: Reports: Fatigue HEENT: Reports: No Symptoms Pulmonary: Reports: No Symptoms Cardiovascular: Reports: No Symptoms Gastrointestinal: Reports: No Symptoms Genitourinary: Reports: No Symptoms Musculoskeletal: Reports: Leg Pain, Other (See above) Neurological: Reports: No Symptoms - Patient Data Vitals - Most Recent: Last Vital Signs Temp 97.5 F 05/05/19 12:01 Pulse 70 05/05/19 11:58 Resp 16 05/05/19 11:58 BP 101/64 05/05/19 11:58 Pulse Ox 94 L 05/05/19 11:58 Weight - Most Recent: 143 lb 14.4 oz I&O - Last 24 Hours: Intake & Output 05/04/19 05/05/19 05/05/19 22:59 06:59 14:59 Intake Total 3000 1847 180 Output Total 2250 Balance 3000 -403 180 Lab Results Last 24 Hours: Laboratory Results - last 24 hr 05/04/19 05/04/19 05/04/19 Range/Units 16:04 16:04 19:12 WBC 7.03 (3.98-10.04) K/mm3 RBC 5.51 H (3.98-5.22) M/mm3 Hgb 16.9 H (11.2-15.7) gm/dl Hct 52.2 H (34.1-44.9) % MCV 94.7 (79.4-94.8) fl MCH 30.7 (25.6-32.2) pg MCHC 32.4 (32.2-35.5) g/dl RDW Std Deviation 44.8 (36.4-46.3) fL Plt Count 219 (182-369) K/mm3 MPV 8.9 L (9.4-12.3) fl Neut % (Auto) (34.0-71.1) % Lymph % (Auto) (19.3-51.7) % [place] % (Auto) (4.7-12.5) % Eos % (Auto) (0.7-5.8) Baso % (Auto) (0.1-1.2) % Neut # (Auto) (1.56-6.13) K/mm3 Lymph # (Auto) (1.18-3.74) K/mm3 [place] # (Auto) (0.24-0.36) K/mm3 Eos # (Auto) (0.04-0.36) K/mm3 Baso # (Auto) (0.01-0.08) K/mm3 Neutrophils % (Manual) 81 H (40-60) % Band Neutrophils % 0 (0-10) % Lymphocytes % (Manual) 10 L (20-40) % Atypical Lymphs % 0 % Monocytes % (Manual) 7 (2-10) % Eosinophils % (Manual) 2 (0.7-5.8) % Basophils % (Manual) 0 L (0.1-1.2) Platelet Estimate Adequate Anisocytosis 1+ slight RBC Morph Comment Not Reportable PT 10.8 (9.7-12.0) SECONDS INR 0.99 Sodium (136-145) mEq/L Potassium (3.5-5.1) mEq/L Chloride (98-107) mEq/L Carbon Dioxide (21-32) mEq/L Anion Gap (5-15) BUN (7-18) mg/dL Creatinine (0.55-1.02) mg/dL Est Cr Clr Drug Dosing mL/min Estimated GFR (MDRD) (>60) mL/min BUN/Creatinine Ratio (14-18) Glucose (80-115) mg/dL Lactic Acid 2.3 H* (0.4-2.0) mmol/L Calcium (8.5-10.1) mg/dL Magnesium (1.8-2.4) mg/dl Total Bilirubin (0.2-1.0) mg/dL AST (15-37) U/L ALT (14-59) U/L Alkaline Phosphatase (46-116) U/L C-Reactive Protein (<1.0) mg/dL Total Protein (6.4-8.2) g/dl Albumin (3.4-5.0) g/dl Globulin gm/dL Albumin/Globulin Ratio (1-2) Urine Color (Yellow) Urine Appearance (Clear) Urine pH (5.0-8.0) Ur Specific [place] (1.005-1.030) Urine Protein (Negative) Urine Glucose (UA) (Negative) Urine Ketones (Negative) Urine Occult Blood (Negative) Urine Nitrite (Negative) Urine Bilirubin (Negative) Urine Urobilinogen (0.2-1.0) Ur Leukocyte Esterase (Negative) 05/04/19 05/04/19 05/05/19 Range/Units 19:12 19:12 00:31 WBC (3.98-10.04) K/mm3 RBC (3.98-5.22) M/mm3 Hgb (11.2-15.7) gm/dl Hct (34.1-44.9) % MCV (79.4-94.8) fl MCH (25.6-32.2) pg MCHC (32.2-35.5) g/dl RDW Std Deviation (36.4-46.3) fL Plt Count (182-369) K/mm3 MPV (9.4-12.3) fl Neut % (Auto) (34.0-71.1) % Lymph % (Auto) (19.3-51.7) % [place] % (Auto) (4.7-12.5) % Eos % (Auto) (0.7-5.8) Baso % (Auto) (0.1-1.2) % Neut # (Auto) (1.56-6.13) K/mm3 Lymph # (Auto) (1.18-3.74) K/mm3 [place] # (Auto) (0.24-0.36) K/mm3 Eos # (Auto) (0.04-0.36) K/mm3 Baso # (Auto) (0.01-0.08) K/mm3 Neutrophils % (Manual) (40-60) % Band Neutrophils % (0-10) % Lymphocytes % (Manual) (20-40) % Atypical Lymphs % % Monocytes % (Manual) (2-10) % Eosinophils % (Manual) (0.7-5.8) % Basophils % (Manual) (0.1-1.2) Platelet Estimate Anisocytosis RBC Morph Comment PT (9.7-12.0) SECONDS INR Sodium 140 (136-145) mEq/L Potassium 3.7 (3.5-5.1) mEq/L Chloride 106 (98-107) mEq/L Carbon Dioxide 24 (21-32) mEq/L Anion Gap 13.7 (5-15) BUN 19 H (7-18) mg/dL Creatinine 0.6 (0.55-1.02) mg/dL Est Cr Clr Drug Dosing 97.25 mL/min Estimated GFR (MDRD) > 60 (>60) mL/min BUN/Creatinine Ratio 31.7 H (14-18) Glucose 109 (80-115) mg/dL Lactic Acid 1.3 (0.4-2.0) mmol/L Calcium 6.8 L D (8.5-10.1) mg/dL Magnesium (1.8-2.4) mg/dl Total Bilirubin 0.6 (0.2-1.0) mg/dL AST 55 H (15-37) U/L ALT 35 (14-59) U/L Alkaline Phosphatase 53 (46-116) U/L C-Reactive Protein 14.1 H* (<1.0) mg/dL Total Protein 5.2 L (6.4-8.2) g/dl Albumin 2.6 L (3.4-5.0) g/dl Globulin 2.6 gm/dL Albumin/Globulin Ratio 1.0 (1-2) Urine Color Yellow (Yellow) Urine Appearance Clear (Clear) Urine pH 5.5 (5.0-8.0) Ur Specific [place] 1.020 (1.005-1.030) Urine Protein Negative (Negative) Urine Glucose (UA) Negative (Negative) Urine Ketones Negative (Negative) Urine Occult Blood Negative (Negative) Urine Nitrite Negative (Negative) Urine Bilirubin Negative (Negative) Urine Urobilinogen 0.2 (0.2-1.0) Ur Leukocyte Esterase Negative (Negative) 05/05/19 05/05/19 Range/Units 05:16 05:16 WBC 4.01 (3.98-10.04) K/mm3 RBC 4.19 (3.98-5.22) M/mm3 Hgb 13.0 D (11.2-15.7) gm/dl Hct 40.6 (34.1-44.9) % MCV 96.9 H (79.4-94.8) fl MCH 31.0 (25.6-32.2) pg MCHC 32.0 L (32.2-35.5) g/dl RDW Std Deviation 45.0 (36.4-46.3) fL Plt Count 165 L (182-369) K/mm3 MPV 8.6 L (9.4-12.3) fl Neut % (Auto) 71.2 H (34.0-71.1) % Lymph % (Auto) 18.7 L (19.3-51.7) % [place] % (Auto) 8.5 (4.7-12.5) % Eos % (Auto) 1.2 (0.7-5.8) Baso % (Auto) 0.2 (0.1-1.2) % Neut # (Auto) 2.85 (1.56-6.13) K/mm3 Lymph # (Auto) 0.75 L (1.18-3.74) K/mm3 [place] # (Auto) 0.34 (0.24-0.36) K/mm3 Eos # (Auto) 0.05 (0.04-0.36) K/mm3 Baso # (Auto) 0.01 (0.01-0.08) K/mm3 Neutrophils % (Manual) (40-60) % Band Neutrophils % (0-10) % Lymphocytes % (Manual) (20-40) % Atypical Lymphs % % Monocytes % (Manual) (2-10) % Eosinophils % (Manual) (0.7-5.8) % Basophils % (Manual) (0.1-1.2) Platelet Estimate Anisocytosis RBC Morph Comment PT (9.7-12.0) SECONDS INR Sodium 136 (136-145) mEq/L Potassium 3.8 (3.5-5.1) mEq/L Chloride 103 (98-107) mEq/L Carbon Dioxide 26 (21-32) mEq/L Anion Gap 10.8 (5-15) BUN 11 (7-18) mg/dL Creatinine 0.6 (0.55-1.02) mg/dL Est Cr Clr Drug Dosing 98.07 mL/min Estimated GFR (MDRD) > 60 (>60) mL/min BUN/Creatinine Ratio 18.3 H (14-18) Glucose 109 (80-115) mg/dL Lactic Acid (0.4-2.0) mmol/L Calcium 7.5 L (8.5-10.1) mg/dL Magnesium 2.0 (1.8-2.4) mg/dl Total Bilirubin (0.2-1.0) mg/dL AST (15-37) U/L ALT (14-59) U/L Alkaline Phosphatase (46-116) U/L C-Reactive Protein (<1.0) mg/dL Total Protein (6.4-8.2) g/dl Albumin (3.4-5.0) g/dl Globulin gm/dL Albumin/Globulin Ratio (1-2) Urine Color (Yellow) Urine Appearance (Clear) Urine pH (5.0-8.0) Ur Specific [place] (1.005-1.030) Urine Protein (Negative) Urine Glucose (UA) (Negative) Urine Ketones (Negative) Urine Occult Blood (Negative) Urine Nitrite (Negative) Urine Bilirubin (Negative) Urine Urobilinogen (0.2-1.0) Ur Leukocyte Esterase (Negative) Jamie Results Last 24 Hours: Microbiology 05/04/19 16:06 Influenza Type A Antigen Screen - Final Nasal, Unspecified NEGATIVE INFLUENZA A VIRUS AG REFERENCE RANGE: NEGATIVE Influenza Type B Antigen Screen - Final NEGATIVE INFLUENZA B VIRUS AG REFERENCE RANGE: NEGATIVE Med Orders - Current: Current Medications Acetaminophen (Tylenol) 650 mg PO Q4H PRN PRN Reason: Pain (Mild 1-3)/fever Last Admin: 05/04/19 15:50 Dose: 650 mg Clonidine HCl (Catapres) 0.1 mg PO TID [facility] Last Admin: 05/05/19 09:35 Dose: 0.1 mg Duloxetine HCl (Cymbalta) 120 mg PO DAILY [facility] Last Admin: 05/05/19 09:34 Dose: 120 mg Lactated Ringer's (Ringers, Lactated) 1,000 mls @ 75 mls/hr IV ASDIRECTED [facility] Last Admin: 05/05/19 10:14 Dose: 75 mls/hr Ceftriaxone Sodium 1 gm/ (Sodium Chloride) 100 mls @ 200 mls/hr IV Q24H [facility] Loperamide HCl (Imodium) 4 mg PO Q6H PRN PRN Reason: Diarrhea Methocarbamol (Robaxin) 1,500 mg PO Q6H [facility] Last Admin: 05/05/19 10:01 Dose: 1,500 mg Multivitamins (Thera) 1 each PO DAILY [facility] Last Admin: 05/05/19 09:35 Dose: 1 each Buprenorphine Hcl/Naloxone Hcl [ Suboxone 4 Mg-1 Mg Sl [place] 2.5 tab SL DAILY [facility] Last Admin: 05/05/19 08:02 Dose: Not Given Ondansetron HCl (Zofran) 4 mg IV Q4H PRN PRN Reason: Nausea/Vomiting Oxycodone HCl (Oxycodone) 5 mg PO Q4H PRN PRN Reason: Pain Last Admin: 05/05/19 11:09 Dose: 5 mg Oxycodone/Acetaminophen (Percocet 325-5 Mg) 1 - 2 tab PO Q4H PRN PRN Reason: Pain (moderate 4-6) Last Admin: 05/05/19 10:02 Dose: 2 tab Paroxetine HCl (Paxil) 20 mg PO DAILY [facility] Last Admin: 05/05/19 09:35 Dose: 20 mg Promethazine HCl (Phenergan) 25 mg PO Q6HR PRN PRN Reason: Nausea Last Admin: 05/04/19 20:48 Dose: 25 mg Discontinued Medications Dicyclomine HCl (Bentyl) 20 mg IM ONETIME ONE Stop: 05/04/19 04:53 Last Admin: 05/04/19 05:03 Dose: 20 mg Lactated Ringer's (Ringers, Lactated) 1,000 mls @ 999 mls/hr IV .BOLUS ONE Stop: 05/04/19 05:44 Last Admin: 05/04/19 04:55 Dose: 999 mls/hr Magnesium Sulfate 2 gm/ Premix 50 mls @ 50 mls/hr IV ONETIME ONE Stop: 05/04/19 07:02 Last Admin: 05/04/19 06:16 Dose: 50 mls/hr Magnesium Sulfate 2 gm/ Premix 50 mls @ 25 mls/hr IV ONETIME ONE Stop: 05/04/19 11:02 Last Admin: 05/04/19 11:28 Dose: 25 mls/hr Lactated Ringer's (Ringers, Lactated) 1,000 mls @ 125 mls/hr IV ASDIRECTED [facility] Sodium Chloride (Normal Saline) 1,000 mls @ 999 mls/hr IV ONETIME ONE Stop: 05/04/19 16:41 Last Admin: 05/04/19 15:51 Dose: 999 mls/hr Sodium Chloride (Normal Saline) 1,000 mls @ 999 mls/hr IV BOLUS ONE Stop: 05/04/19 16:57 Last Admin: 05/04/19 17:25 Dose: 999 mls/hr Ceftriaxone Sodium 2 gm/ (Sodium Chloride) 100 mls @ 200 mls/hr IV ONETIME ONE Stop: 05/04/19 17:23 Last Admin: 05/04/19 17:26 Dose: 200 mls/hr Lactated Ringer's (Ringers, Lactated) 1,000 mls @ 150 mls/hr IV ASDIRECTED [facility] Last Admin: 05/04/19 19:59 Dose: 150 mls/hr Lactated Ringer's (Ringers, Lactated) 1,000 mls @ 125 mls/hr IV ASDIRECTED [facility] Last Admin: 05/05/19 02:00 Dose: 125 mls/hr Loperamide HCl (Imodium) 4 mg PO ONETIME STA Stop: 05/04/19 04:46 Last Admin: 05/04/19 04:53 Dose: 4 mg Lorazepam (Ativan) 1 mg IVPUSH ONETIME STA Stop: 05/04/19 04:46 Last Admin: 05/04/19 04:56 Dose: 1 mg Methocarbamol (Robaxin) 1,500 mg PO TID [facility] Last Admin: 05/04/19 13:37 Dose: Not Given Methocarbamol (Robaxin) 1,500 mg PO ONETIME ONE Stop: 05/04/19 12:31 Last Admin: 05/04/19 12:43 Dose: 1,500 mg Methocarbamol (Robaxin) 1,500 mg PO ONETIME ONE Stop: 05/04/19 20:01 Last Admin: 05/04/19 20:36 Dose: 1,500 mg Methocarbamol (Robaxin) 1,500 mg PO TID@0500,1300,2100 [facility] Last Admin: 05/05/19 04:56 Dose: 1,500 mg Non-Formulary Medication (Methocarbamol) 2 tab PO TID [facility]E Oseltamivir Phosphate (Tamiflu) 75 mg PO ONETIME ONE Stop: 05/04/19 16:11 Last Admin: 05/04/19 17:29 Dose: 75 mg Oxycodone/Acetaminophen (Percocet 325-5 Mg) 1 tab PO Q4H PRN PRN Reason: Pain (moderate 4-6) Last Admin: 05/04/19 20:38 Dose: 1 tab - Exam Quality Assessment: No: Supplemental Oxygen General: Alert, Oriented HEENT: Pupils Equal, Mucous Membr. Moist/[place] Neck: Supple Lungs: Clear to Auscultation, Normal Respiratory Effort Cardiovascular: Regular Rate, Regular Rhythm GI/Abdominal Exam: Normal Bowel Sounds, Soft, Non-Tender Extremities: Normal Inspection, No Pedal Edema Skin: Warm, Dry, Intact Neurological: No New Focal Deficit Psy/Mental Status: Alert, Anxious Sepsis Event Note - Evaluation Sepsis Screening Result: No Definite Risk - Focused Exam Vital Signs: Vital Signs Temp Pulse Resp BP Pulse Ox 05/05/19 12:01 97.5 F 05/05/19 11:58 70 16 101/64 94 L 05/05/19 09:35 127/87 05/05/19 09:30 98.8 F 69 16 127/87 93 L 05/05/19 04:33 99.0 F 83 12 116/59 L 96 Date Exam was Performed: 05/05/19 Time Exam was Performed: 13:39 - Problem List Review Problem List Initiated/Reviewed/Updated: Yes - My Orders Last 24 Hours: My Active Orders 05/04/19 15:00 cloNIDine [Catapres] 0.1 mg PO TID 05/04/19 15:36 Blood Culture x2 Reflex Set [OM.PC] Stat 05/04/19 15:57 Severe Sepsis Onset Time [OM.PC] Stat 05/04/19 16:03 Patient Status [ADT] Routine 05/04/19 16:04 CULTURE BLOOD [BC] Stat 05/04/19 16:18 CULTURE BLOOD [BC] Stat 05/04/19 20:53 Acetaminophen/oxyCODONE [Percocet 325-5 MG] 1 - 2 tab PO Q4H PRN 05/05/19 09:00 Multivitamins,Therapeutic [Thera] 1 each PO DAILY 05/05/19 09:45 oxyCODONE 5 mg PO Q4H PRN 05/05/19 10:00 Lactated Ringers [Ringers, Lactated] 1,000 ml IV ASDIRECTED 05/05/19 10:57 Antiembolic Devices [RC] PER UNIT ROUTINE SCD [Sequential Compression Device] [OM.PC] Routine 05/05/19 11:00 Methocarbamol [Robaxin] 1,500 mg PO Q6H 05/05/19 17:00 cefTRIAXone [Rocephin] 1 gm Sodium Chloride 0.9% [Normal Saline] 100 ml IV Q24H - Plan Plan:: Assessment * Gastroenteritis * Presented with multiple bouts of diarrhea. Was given Imodium and Bentyl in the emergency room. * For watery stools overnight and this morning * Negative C. difficile * Fever could be due to infectious diarrhea. * Acute febrile illness likely influenza * Started on Rocephin and Tamiflu yesterday * No fever overnight * Chronic low back pain * On Suboxone and methocarbamol at home * Unable to get home meds * Muscle spasms * Likely worsened due to missing medications and due to febrile illness. Plan * Observation * Restart methocarbamol 1500 mg 3 times daily for muscle spasms * Increase Percocet 5/325 to 2 tabs every 4 hour as needed for pain and add oxycodone 5 mg every 4 hours as needed for pain * LR at 75 mL an hour * Continue Rocephin until 48 hours of negative blood cultures * Continue Tamiflu 75 mg twice daily * Get stools for culture * Loperamide as needed * Zofran as needed * CODE STATUS: DO NOT RESUSCITATE * VTE prophylaxis with Lovenox * Length of stay 2 more days.
[2019-05-05] MEDS: predniSONE 10 MG Tab PO SCH (14:14)
[2019-05-05] MEDS ORDERED: cefTRIAXone 1 GM in Sodium Chloride 0.9% 100 ML IV SCH (17:00)
[2019-05-05] MEDS ORDERED: Oseltamivir 75 MG Cap PO SCH (21:00)
[2019-05-05] MEDS: Promethazine 25 MG Tab PO PRN (21:05)
[2019-05-06] MEDS: Lactated Ringers 1,000 ML IV SCH (01:18)
[2019-05-06] MEDS: Methocarbamol 500 MG Tab PO SCH ×2 (04:48→10:38)
[2019-05-06] MEDS: Acetaminophen/oxyCODONE 325-5 MG Tab PO PRN ×3 (04:48→14:18)
[2019-05-06 08:16] VITALS: PULSE 66
[2019-05-06] MEDS: cloNIDine 0.1 MG Tab PO SCH ×2 (08:16→14:19)
[2019-05-06] MEDS: Multivitamins,Therapeutic Tab PO SCH (08:19)
[2019-05-06] MEDS: PARoxetine 20 MG Tab PO SCH (08:24)
[2019-05-06] MEDS: predniSONE 10 MG Tab PO SCH (08:24)
[2019-05-06] MEDS: DULoxetine 30 MG Cap PO SCH (08:25)
[2019-05-06] MEDS: NALOXONE HCL SL SCH (08:25)
[2019-05-06] MEDS: BUPRENORPHINE HCL SL SCH (08:25)
[2019-05-06] MEDS ORDERED: Enoxaparin 40 MG/0.4 ML Syringe SUBCUT SCH (09:00)
[2019-05-06] MEDS ORDERED: Oseltamivir 75 MG Cap PO SCH (09:30)
--- NOTE | 2019-05-06 12:35 | PCM.PN ---
- General Info Date of Service: 05/06/19 Admission Dx/Problem (Free Text): Admission Diagnosis/Problem Admission Diagnosis/Problem Vomiting Subjective Update: Patient states that she is feeling much better and ready for discharge. She states she she wants to get back home to her dogs and cats. She continues to have watery diarrhea. She has had 3 bouts this morning. There is no blood. Pain has greatly improved. - Review of Systems General: Reports: No Symptoms HEENT: Reports: No Symptoms Pulmonary: Reports: No Symptoms Cardiovascular: Reports: No Symptoms Gastrointestinal: Reports: Diarrhea, Nausea. Denies: Vomiting - Patient Data Vitals - Most Recent: Last Vital Signs Temp 97.5 F 05/06/19 08:13 Pulse 66 05/06/19 08:14 Resp 18 05/06/19 08:13 BP 97/50 L 05/06/19 08:16 Pulse Ox 96 05/06/19 08:14 Weight - Most Recent: 146 lb 14.4 oz I&O - Last 24 Hours: Intake & Output 05/05/19 05/06/19 05/06/19 22:59 06:59 14:59 Intake Total 2533 1356 180 Output Total 1100 1750 Balance 1433 -394 180 Lab Results Last 24 Hours: Laboratory Results - last 24 hr 05/05/19 05/06/19 05/06/19 Range/Units 14:07 05:45 05:45 WBC 3.12 L 3.73 L (3.98-10.04) K/mm3 RBC 4.05 3.99 (3.98-5.22) M/mm3 Hgb 12.3 12.1 (11.2-15.7) gm/dl Hct 39.3 38.9 (34.1-44.9) % MCV 97.0 H 97.5 H (79.4-94.8) fl MCH 30.4 30.3 (25.6-32.2) pg MCHC 31.3 L 31.1 L (32.2-35.5) g/dl RDW Std Deviation 45.0 44.4 (36.4-46.3) fL Plt Count 154 L 151 L (182-369) K/mm3 MPV 8.5 L 8.5 L (9.4-12.3) fl Neut % (Auto) 61.9 59.3 (34.0-71.1) % Lymph % (Auto) 24.4 26.8 (19.3-51.7) % [place] % (Auto) 9.3 10.2 (4.7-12.5) % Eos % (Auto) 3.8 3.2 (0.7-5.8) Baso % (Auto) 0.6 0.5 (0.1-1.2) % Neut # (Auto) 1.93 2.21 (1.56-6.13) K/mm3 Lymph # (Auto) 0.76 L 1.00 L (1.18-3.74) K/mm3 [place] # (Auto) 0.29 0.38 H (0.24-0.36) K/mm3 Eos # (Auto) 0.12 0.12 (0.04-0.36) K/mm3 Baso # (Auto) 0.02 0.02 (0.01-0.08) K/mm3 Sodium 140 (136-145) mEq/L Potassium 3.7 (3.5-5.1) mEq/L Chloride 106 (98-107) mEq/L Carbon Dioxide 28 (21-32) mEq/L Anion Gap 9.7 (5-15) BUN 9 (7-18) mg/dL Creatinine 0.6 (0.55-1.02) mg/dL Est Cr Clr Drug Dosing 98.07 mL/min Estimated GFR (MDRD) > 60 (>60) mL/min BUN/Creatinine Ratio 15.0 (14-18) Glucose 108 (80-115) mg/dL Calcium 8.1 L (8.5-10.1) mg/dL Magnesium 1.8 (1.8-2.4) mg/dl Total Bilirubin 0.3 (0.2-1.0) mg/dL AST 58 H (15-37) U/L ALT 40 (14-59) U/L Alkaline Phosphatase 58 (46-116) U/L Total Protein 5.4 L (6.4-8.2) g/dl Albumin 2.7 L (3.4-5.0) g/dl Globulin 2.7 gm/dL Albumin/Globulin Ratio 1.0 (1-2) Jamie Results Last 24 Hours: Microbiology 05/04/19 16:18 Aerobic Blood Culture - Preliminary Blood - Venous - Lab Draw NO GROWTH AFTER 1 DAY Anaerobic Blood Culture - Preliminary NO GROWTH AFTER 1 DAY 05/04/19 16:04 Aerobic Blood Culture - Preliminary Blood - Venous NO GROWTH AFTER 1 DAY Anaerobic Blood Culture - Preliminary NO GROWTH AFTER 1 DAY Med Orders - Current: Current Medications Acetaminophen (Tylenol) 650 mg PO Q4H PRN PRN Reason: Pain (Mild 1-3)/fever Last Admin: 05/04/19 15:50 Dose: 650 mg Clonidine HCl (Catapres) 0.1 mg PO TID [facility] Last Admin: 05/06/19 08:16 Dose: Not Given Duloxetine HCl (Cymbalta) 120 mg PO DAILY [facility] Last Admin: 05/06/19 08:25 Dose: 120 mg Enoxaparin Sodium (Lovenox) 40 mg SUBCUT DAILY [facility] Last Admin: 05/06/19 08:25 Dose: 40 mg Lactated Ringer's (Ringers, Lactated) 1,000 mls @ 75 mls/hr IV ASDIRECTED [facility] Last Admin: 05/06/19 01:18 Dose: 75 mls/hr Ceftriaxone Sodium 1 gm/ (Sodium Chloride) 100 mls @ 200 mls/hr IV Q24H [facility] Loperamide HCl (Imodium) 4 mg PO Q6H PRN PRN Reason: Diarrhea Last Admin: 05/06/19 08:06 Dose: 4 mg Methocarbamol (Robaxin) 1,500 mg PO Q6H [facility] Last Admin: 05/06/19 10:38 Dose: 1,500 mg Multivitamins (Thera) 1 each PO DAILY [facility] Last Admin: 05/06/19 08:19 Dose: Not Given Buprenorphine Hcl/Naloxone Hcl [ Suboxone 4 Mg-1 Mg Sl Bennett 2.5 tab SL DAILY [facility] Last Admin: 05/06/19 08:25 Dose: 2.5 tab Ondansetron HCl (Zofran) 4 mg IV Q4H PRN PRN Reason: Nausea/Vomiting Last Admin: 05/06/19 08:05 Dose: 4 mg Oseltamivir Phosphate (Tamiflu) 75 mg PO BID [facility] Last Admin: 05/06/19 10:39 Dose: 75 mg Oxycodone HCl (Oxycodone) 5 mg PO Q4H PRN PRN Reason: Pain Last Admin: 05/05/19 21:06 Dose: 5 mg Oxycodone/Acetaminophen (Percocet 325-5 Mg) 1 - 2 tab PO Q4H PRN PRN Reason: Pain (moderate 4-6) Last Admin: 05/06/19 10:38 Dose: 2 tab Paroxetine HCl (Paxil) 20 mg PO DAILY [facility] Last Admin: 05/06/19 08:24 Dose: 20 mg Prednisone (Prednisone) 10 mg PO DAILY [facility] Last Admin: 05/06/19 08:24 Dose: 10 mg Promethazine HCl (Phenergan) 25 mg PO Q6HR PRN PRN Reason: Nausea Last Admin: 05/05/19 21:05 Dose: 25 mg Discontinued Medications Dicyclomine HCl (Bentyl) 20 mg IM ONETIME ONE Stop: 05/04/19 04:53 Last Admin: 05/04/19 05:03 Dose: 20 mg Lactated Ringer's (Ringers, Lactated) 1,000 mls @ 999 mls/hr IV .BOLUS ONE Stop: 05/04/19 05:44 Last Admin: 05/04/19 04:55 Dose: 999 mls/hr Magnesium Sulfate 2 gm/ Premix 50 mls @ 50 mls/hr IV ONETIME ONE Stop: 05/04/19 07:02 Last Admin: 05/04/19 06:16 Dose: 50 mls/hr Magnesium Sulfate 2 gm/ Premix 50 mls @ 25 mls/hr IV ONETIME ONE Stop: 05/04/19 11:02 Last Admin: 05/04/19 11:28 Dose: 25 mls/hr Lactated Ringer's (Ringers, Lactated) 1,000 mls @ 125 mls/hr IV ASDIRECTED [facility] Sodium Chloride (Normal Saline) 1,000 mls @ 999 mls/hr IV ONETIME ONE Stop: 05/04/19 16:41 Last Admin: 05/04/19 15:51 Dose: 999 mls/hr Sodium Chloride (Normal Saline) 1,000 mls @ 999 mls/hr IV BOLUS ONE Stop: 05/04/19 16:57 Last Admin: 05/04/19 17:25 Dose: 999 mls/hr Ceftriaxone Sodium 2 gm/ (Sodium Chloride) 100 mls @ 200 mls/hr IV ONETIME ONE Stop: 05/04/19 17:23 Last Admin: 05/04/19 17:26 Dose: 200 mls/hr Lactated Ringer's (Ringers, Lactated) 1,000 mls @ 150 mls/hr IV ASDIRECTED [facility] Last Admin: 05/04/19 19:59 Dose: 150 mls/hr Lactated Ringer's (Ringers, Lactated) 1,000 mls @ 125 mls/hr IV ASDIRECTED [facility] Last Admin: 05/05/19 02:00 Dose: 125 mls/hr Ceftriaxone Sodium 1 gm/ (Sodium Chloride) 100 mls @ 200 mls/hr IV Q24H [facility] Last Admin: 05/05/19 16:08 Dose: 200 mls/hr Loperamide HCl (Imodium) 4 mg PO ONETIME STA Stop: 05/04/19 04:46 Last Admin: 05/04/19 04:53 Dose: 4 mg Lorazepam (Ativan) 1 mg IVPUSH ONETIME STA Stop: 05/04/19 04:46 Last Admin: 05/04/19 04:56 Dose: 1 mg Methocarbamol (Robaxin) 1,500 mg PO TID [facility] Last Admin: 05/04/19 13:37 Dose: Not Given Methocarbamol (Robaxin) 1,500 mg PO ONETIME ONE Stop: 05/04/19 12:31 Last Admin: 05/04/19 12:43 Dose: 1,500 mg Methocarbamol (Robaxin) 1,500 mg PO ONETIME ONE Stop: 05/04/19 20:01 Last Admin: 05/04/19 20:36 Dose: 1,500 mg Methocarbamol (Robaxin) 1,500 mg PO TID@0500,1300,2100 [facility] Last Admin: 05/05/19 04:56 Dose: 1,500 mg Non-Formulary Medication (Methocarbamol) 2 tab PO TID [facility] Oseltamivir Phosphate (Tamiflu) 75 mg PO ONETIME ONE Stop: 05/04/19 16:11 Last Admin: 05/04/19 17:29 Dose: 75 mg Oseltamivir Phosphate (Tamiflu) 75 mg PO DAILY [facility] Last Admin: 05/05/19 21:05 Dose: 75 mg Oxycodone/Acetaminophen (Percocet 325-5 Mg) 1 tab PO Q4H PRN PRN Reason: Pain (moderate 4-6) Last Admin: 05/04/19 20:38 Dose: 1 tab - Exam General: Alert, Oriented HEENT: Pupils Equal, Mucous Membr. Moist/[place] Neck: Supple Lungs: Clear to Auscultation, Normal Respiratory Effort Cardiovascular: Regular Rate, Regular Rhythm GI/Abdominal Exam: Normal Bowel Sounds, Tender (Diffusely tender without guarding or rebound) Back Exam: Normal Inspection Extremities: Normal Inspection, Normal Range of Motion, No Pedal Edema Skin: Warm, Dry, Intact Psy/Mental Status: Alert, Normal Affect, Normal Mood Sepsis Event Note - Evaluation Sepsis Screening Result: No Definite Risk - Focused Exam Vital Signs: Vital Signs Temp Pulse Resp BP Pulse Ox 05/06/19 08:16 97/50 L 05/06/19 08:14 66 97/50 L 96 05/06/19 08:13 97.5 F 69 18 86/65 L 97 05/06/19 04:47 98.2 F 82 13 104/54 L 95 Date Exam was Performed: 05/06/19 Time Exam was Performed: 13:21 - Problem List Review Problem List Initiated/Reviewed/Updated: Yes - My Orders Last 24 Hours: My Active Orders 05/05/19 14:00 predniSONE 10 mg PO DAILY 05/06/19 05:36 CULTURE STOOL + SHIGATOX [RM] Routine 05/06/19 09:00 Enoxaparin [Lovenox] 40 mg SUBCUT DAILY 05/06/19 09:30 Oseltamivir [Tamiflu] 75 mg PO BID 05/06/19 15:00 cefTRIAXone [Rocephin] 1 gm Sodium Chloride 0.9% [Normal Saline] 100 ml IV Q24H 05/07/19 05:11 CBC WITH AUTO DIFF [HEME] AM CMP [COMPREHENSIVE METABOLIC PN,CMP] [CHEM] AM MAGNESIUM [CHEM] AM - Plan Plan:: Assessment * Gastroenteritis * Presented with multiple bouts of diarrhea. Was given Imodium and Bentyl in the emergency room. * 3 watery stools this morning * Negative C. difficile * Fever could be due to infectious diarrhea. Stool culture obtained. * Acute febrile illness likely influenza * Started on Rocephin and Tamiflu yesterday * No fever overnight * Chronic low back pain * On Suboxone and methocarbamol at home * Unable to get home meds * Muscle spasms * Likely worsened due to missing medications and due to febrile illness. Plan * Observation * Methocarbamol 1500 mg 4 times daily has helped her muscle spasms * Increase Percocet 5/325 to 2 tabs every 4 hour as needed for pain and add oxycodone 5 mg every 4 hours as needed for pain * Stop LR at 75 mL an hour * Continue Rocephin until 48 hours of negative blood cultures which should be this afternoon * Continue Tamiflu 75 mg twice daily for total of 5 days * Get stools for culture * Loperamide as needed * Zofran as needed * CODE STATUS: DO NOT RESUSCITATE * VTE prophylaxis with Lovenox * Patient request to go home this afternoon. After her third dose of Rocephin we will send her home. Stool cultures will be pending for 1 or 2 more days. 48 hours of blood cultures results around 1400 hrs.
[2019-05-06 14:20] VITALS: BP 100/60
[2019-05-06] MEDS ORDERED: cefTRIAXone 1 GM in Sodium Chloride 0.9% 100 ML IV SCH (15:00)
--- NOTE | 2019-05-06 15:37 | PCM.DCSUM1 ---
Discharge Summary - Hospital Course HPI Initial Comments: 63-year-old patient with chronic low back pain from failed back surgery presented to the emergency room via EMS secondary to 6 episodes of watery diarrhea. Patient takes Suboxone chronically and only had 1 dose yesterday. She states she takes 2-2-1/2 doses a day. She did not take any medication before calling 911 and did not bring any medications with her. In the emergency room she stated that she had nausea, vomiting, diarrhea, abdominal cramps, generalized weakness, and pain everywhere. Patient was an unreliable historian in the emergency room secondary to hyperventilation, patient has a history of anxiety and depression, and when I visited with her this morning she also was a poor historian secondary to pain due to muscle spasms everywhere. Of note patient recently finished a 10-day course of amoxicillin. Stool for C. difficile was obtained in the emergency room which was negative. Patient denies anyone having similar symptoms. She denies any recent travel. Patient is also very erythematous from head down to mid upper thigh. This does not include the extremities. When asked that this is normal for her she did not answer x2. In the emergency room patient was given 1 mg of Ativan secondary to anxiety. Unfortunately, this caused sedation which prompted the observation transfer. Now the patient is in severe pain and has no one to take her home. She was also given loperamide, dicyclomine, and 1 L lactated Ringer's in the emergency room. Labs in the emergency room: WBC 6.18, hemoglobin 16.6, platelets 247, sodium 141 , potassium 3.8, chloride 105, carbon dioxide 26, anion gap 13.8, BUN 25, creatinine 0.9, glucose 166, magnesium 1.5 (was given to grams magnesium in the emergency room), normal liver function and lipase, normal UA. Diagnosis: Stroke: No - Discharge Data Discharge Date: 05/06/19 Discharge Disposition: Home, Self-Care 01 Condition: Good - Referral to Home Health Primary Care Physician: Amanda Gay NP - Patient Summary/Data Consults: Consultations 05/04/19 09:44 OT Evaluation and Treatment [CONS] Routine PT Evaluation and Treatment [CONS] Routine Hospital Course: Patient had an episode of fever of 101.5. Blood cultures, chest x-ray, UA, influenza screen fluid bolus, and Rocephin was given. All studies were negative and she never developed another fever during hospitalization. She was started on Tamiflu and we will continue her on Tamiflu until the and of a 5-day course. Patient did well with IV fluids and rest. She continued to have diarrhea on the morning of discharge. Patient wanted to get home to her cats and dogs so we will follow up with her stool cultures. - Patient Instructions Diet: Usual Diet as Tolerated Activity: As Tolerated Driving: Do Not Drive Showering/Bathing: May Shower Other/Special Instructions: Follow-up with primary care provider in 1 to 2 weeks. Blood cultures are pending and if positive you will be contacted for further treatment. - Discharge Plan *PRESCRIPTION DRUG MONITORING PROGRAM REVIEWED*: Not Applicable *COPY OF PRESCRIPTION DRUG MONITORING REPORT IN PATIENT MALLIKA: Not Applicable Prescriptions/Med Rec: Oseltamivir [Tamiflu] 75 mg PO BID #5 cap Home Medications: Home Meds methocarbamoL [Methocarbamol] 2 tab PO TID 12/13/13 [History] Promethazine [Phenergan] 25 mg PO Q6HR PRN 12/18/13 [History] DULoxetine [Cymbalta] 120 mg PO DAILY 01/08/14 [History] Acetaminophen [Tylenol Arthritis Pain] 3 tab PO BID PRN 04/22/15 [History] Buprenorphine HCl/Naloxone HCl [Suboxone 4 mg-1 mg Sl Film] 2.5 tab SL DAILY 09/30 [History] Multivitamin [Daily Multiple Vitamin] 1 tab PO DAILY 04/22/15 [History] PARoxetine [Paxil] 20 mg PO DAILY 04/22/15 [History] Prednisone [IJD: Prednisone] 10 mg PO DAILY 03/09/17 [History] cloNIDine [Catapres] 0.1 mg PO TID 03/09/17 [History] Oseltamivir [Tamiflu] 75 mg PO BID #5 cap 05/06/19 [Rx] Patient Handouts: Viral Gastroenteritis, Adult, [id number], Food Choices to Help Relieve Diarrhea, Adult, Steps to Quit Smoking Referrals: Amanda Gay NP [Primary Care Provider] - 05/17/19 1:30 pm (Please register by 1:15pm.) Max Tovar DO [Ordering Only Provider] - - Discharge Summary/Plan Comment DC Time >30 min.: Yes Discharge Summary/Plan Comment: Stool cultures pending. Blood cultures at 48 hours are negative. Follow-up with primary care provider in 1 week. Finish 5-day course of Tamiflu. - Patient Data Vitals - Most Recent: Last Vital Signs Temp 97.5 F 05/06/19 08:13 Pulse 66 05/06/19 08:14 Resp 18 05/06/19 08:13 BP 100/60 05/06/19 14:19 Pulse Ox 96 05/06/19 08:14 Weight - Most Recent: 146 lb 14.4 oz I&O - Last 24 hours: Intake & Output 05/06/19 05/06/19 05/06/19 06:59 14:59 22:59 Intake Total 1356 180 300 Output Total 1750 Balance -394 180 300 Lab Results - Last 24 hrs: Laboratory Results - last 24 hr 05/06/19 05/06/19 Range/Units 05:45 05:45 WBC 3.73 L (3.98-10.04) K/mm3 RBC 3.99 (3.98-5.22) M/mm3 Hgb 12.1 (11.2-15.7) gm/dl Hct 38.9 (34.1-44.9) % MCV 97.5 H (79.4-94.8) fl MCH 30.3 (25.6-32.2) pg MCHC 31.1 L (32.2-35.5) g/dl RDW Std Deviation 44.4 (36.4-46.3) fL Plt Count 151 L (182-369) K/mm3 MPV 8.5 L (9.4-12.3) fl Neut % (Auto) 59.3 (34.0-71.1) % Lymph % (Auto) 26.8 (19.3-51.7) % [place] % (Auto) 10.2 (4.7-12.5) % Eos % (Auto) 3.2 (0.7-5.8) Baso % (Auto) 0.5 (0.1-1.2) % Neut # (Auto) 2.21 (1.56-6.13) K/mm3 Lymph # (Auto) 1.00 L (1.18-3.74) K/mm3 [place] # (Auto) 0.38 H (0.24-0.36) K/mm3 Eos # (Auto) 0.12 (0.04-0.36) K/mm3 Baso # (Auto) 0.02 (0.01-0.08) K/mm3 Sodium 140 (136-145) mEq/L Potassium 3.7 (3.5-5.1) mEq/L Chloride 106 (98-107) mEq/L Carbon Dioxide 28 (21-32) mEq/L Anion Gap 9.7 (5-15) BUN 9 (7-18) mg/dL Creatinine 0.6 (0.55-1.02) mg/dL Est Cr Clr Drug Dosing 98.07 mL/min Estimated GFR (MDRD) > 60 (>60) mL/min BUN/Creatinine Ratio 15.0 (14-18) Glucose 108 (80-115) mg/dL Calcium 8.1 L (8.5-10.1) mg/dL Magnesium 1.8 (1.8-2.4) mg/dl Total Bilirubin 0.3 (0.2-1.0) mg/dL AST 58 H (15-37) U/L ALT 40 (14-59) U/L Alkaline Phosphatase 58 (46-116) U/L Total Protein 5.4 L (6.4-8.2) g/dl Albumin 2.7 L (3.4-5.0) g/dl Globulin 2.7 gm/dL Albumin/Globulin Ratio 1.0 (1-2) ALEX[place]REA Results - Last 24 hrs: Microbiology 05/04/19 16:18 Aerobic Blood Culture - Preliminary Blood - Venous - Lab Draw NO GROWTH AFTER 1 DAY Anaerobic Blood Culture - Preliminary NO GROWTH AFTER 1 DAY 05/04/19 16:04 Aerobic Blood Culture - Preliminary Blood - Venous NO GROWTH AFTER 1 DAY Anaerobic Blood Culture - Preliminary NO GROWTH AFTER 1 DAY Med Orders - Current: Current Medications Acetaminophen (Tylenol) 650 mg PO Q4H PRN PRN Reason: Pain (Mild 1-3)/fever Last Admin: 05/04/19 15:50 Dose: 650 mg Clonidine HCl (Catapres) 0.1 mg PO TID [facility] Last Admin: 05/06/19 14:19 Dose: 0.1 mg Duloxetine HCl (Cymbalta) 120 mg PO DAILY [facility] Last Admin: 05/06/19 08:25 Dose: 120 mg Enoxaparin Sodium (Lovenox) 40 mg SUBCUT DAILY [facility] Last Admin: 05/06/19 08:25 Dose: 40 mg Lactated Ringer's (Ringers, Lactated) 1,000 mls @ 75 mls/hr IV ASDIRECTED [facility] Last Admin: 05/06/19 01:18 Dose: 75 mls/hr Ceftriaxone Sodium 1 gm/ (Sodium Chloride) 100 mls @ 200 mls/hr IV Q24H [facility] Last Admin: 05/06/19 14:19 Dose: 200 mls/hr Loperamide HCl (Imodium) 4 mg PO Q6H PRN PRN Reason: Diarrhea Last Admin: 05/06/19 08:06 Dose: 4 mg Methocarbamol (Robaxin) 1,500 mg PO Q6H [facility] Last Admin: 05/06/19 10:38 Dose: 1,500 mg Multivitamins (Thera) 1 each PO DAILY [facility] Last Admin: 05/06/19 08:19 Dose: Not Given Buprenorphine Hcl/Naloxone Hcl [ Suboxone 4 Mg-1 Mg Sl [place] 2.5 tab SL DAILY [facility] Last Admin: 05/06/19 08:25 Dose: 2.5 tab Ondansetron HCl (Zofran) 4 mg IV Q4H PRN PRN Reason: Nausea/Vomiting Last Admin: 05/06/19 08:05 Dose: 4 mg Oseltamivir Phosphate (Tamiflu) 75 mg PO BID [facility] Last Admin: 05/06/19 10:39 Dose: 75 mg Oxycodone HCl (Oxycodone) 5 mg PO Q4H PRN PRN Reason: Pain Last Admin: 05/05/19 21:06 Dose: 5 mg Oxycodone/Acetaminophen (Percocet 325-5 Mg) 1 - 2 tab PO Q4H PRN PRN Reason: Pain (moderate 4-6) Last Admin: 05/06/19 14:18 Dose: 2 tab Paroxetine HCl (Paxil) 20 mg PO DAILY [facility] Last Admin: 05/06/19 08:24 Dose: 20 mg Prednisone (Prednisone) 10 mg PO DAILY [facility] Last Admin: 05/06/19 08:24 Dose: 10 mg Promethazine HCl (Phenergan) 25 mg PO Q6HR PRN PRN Reason: Nausea Last Admin: 05/05/19 21:05 Dose: 25 mg Discontinued Medications Dicyclomine HCl (Bentyl) 20 mg IM ONETIME ONE Stop: 05/04/19 04:53 Last Admin: 05/04/19 05:03 Dose: 20 mg Lactated Ringer's (Ringers, Lactated) 1,000 mls @ 999 mls/hr IV .BOLUS ONE Stop: 05/04/19 05:44 Last Admin: 05/04/19 04:55 Dose: 999 mls/hr Magnesium Sulfate 2 gm/ Premix 50 mls @ 50 mls/hr IV ONETIME ONE Stop: 05/04/19 07:02 Last Admin: 05/04/19 06:16 Dose: 50 mls/hr Magnesium Sulfate 2 gm/ Premix 50 mls @ 25 mls/hr IV ONETIME ONE Stop: 05/04/19 11:02 Last Admin: 05/04/19 11:28 Dose: 25 mls/hr Lactated Ringer's (Ringers, Lactated) 1,000 mls @ 125 mls/hr IV ASDIRECTED [facility] Sodium Chloride (Normal Saline) 1,000 mls @ 999 mls/hr IV ONETIME ONE Stop: 05/04/19 16:41 Last Admin: 05/04/19 15:51 Dose: 999 mls/hr Sodium Chloride (Normal Saline) 1,000 mls @ 999 mls/hr IV BOLUS ONE Stop: 05/04/19 16:57 Last Admin: 05/04/19 17:25 Dose: 999 mls/hr Ceftriaxone Sodium 2 gm/ (Sodium Chloride) 100 mls @ 200 mls/hr IV ONETIME ONE Stop: 05/04/19 17:23 Last Admin: 05/04/19 17:26 Dose: 200 mls/hr Lactated Ringer's (Ringers, Lactated) 1,000 mls @ 150 mls/hr IV ASDIRECTED [facility] Last Admin: 05/04/19 19:59 Dose: 150 mls/hr Lactated Ringer's (Ringers, Lactated) 1,000 mls @ 125 mls/hr IV ASDIRECTED [facility] Last Admin: 05/05/19 02:00 Dose: 125 mls/hr Ceftriaxone Sodium 1 gm/ (Sodium Chloride) 100 mls @ 200 mls/hr IV Q24H [facility] Last Admin: 05/05/19 16:08 Dose: 200 mls/hr Loperamide HCl (Imodium) 4 mg PO ONETIME STA Stop: 05/04/19 04:46 Last Admin: 05/04/19 04:53 Dose: 4 mg Lorazepam (Ativan) 1 mg IVPUSH ONETIME STA Stop: 05/04/19 04:46 Last Admin: 05/04/19 04:56 Dose: 1 mg Methocarbamol (Robaxin) 1,500 mg PO TID [facility] Last Admin: 05/04/19 13:37 Dose: Not Given Methocarbamol (Robaxin) 1,500 mg PO ONETIME ONE Stop: 05/04/19 12:31 Last Admin: 05/04/19 12:43 Dose: 1,500 mg Methocarbamol (Robaxin) 1,500 mg PO ONETIME ONE Stop: 05/04/19 20:01 Last Admin: 05/04/19 20:36 Dose: 1,500 mg Methocarbamol (Robaxin) 1,500 mg PO TID@0500,1300,2100 [facility] Last Admin: 05/05/19 04:56 Dose: 1,500 mg Non-Formulary Medication (Methocarbamol) 2 tab PO TID [facility] Oseltamivir Phosphate (Tamiflu) 75 mg PO ONETIME ONE Stop: 05/04/19 16:11 Last Admin: 05/04/19 17:29 Dose: 75 mg Oseltamivir Phosphate (Tamiflu) 75 mg PO DAILY [facility] Last Admin: 05/05/19 21:05 Dose: 75 mg Oxycodone/Acetaminophen (Percocet 325-5 Mg) 1 tab PO Q4H PRN PRN Reason: Pain (moderate 4-6) Last Admin: 05/04/19 20:38 Dose: 1 tab
== END 2019-05-06 16:00 | disposition home or self-care (01) | DRG 392 ==
LOC: JD.ED 04:17 → JD.MS 07:26 → OBSVTOIN 16:03 → JD.MS 16:08
PROVIDERS: ADMIT Family Medicine; ATTEND Family Medicine
DX: K52.9 Noninfective gastroenteritis and colitis, unspecified (principal); M62.838 Other muscle spasm; M48.061 Spinal stenosis, lumbar region without neurogenic claudication; R50.9 Fever, unspecified; M54.5 Low back pain; F17.210 Nicotine dependence, cigarettes, uncomplicated; E83.42 Hypomagnesemia; R00.0 Tachycardia, unspecified; F41.9 Anxiety disorder, unspecified; F32.9 Major depressive disorder, single episode, unspecified; M51.36 Other intervertebral disc degeneration, lumbar region; E78.00 Pure hypercholesterolemia, unspecified; M19.90 Unspecified osteoarthritis, unspecified site; M54.2 Cervicalgia; F17.200 Nicotine dependence, unspecified, uncomplicated; Z79.52 Long term (current) use of systemic steroids; G43.909 Migraine, unspecified, not intractable, without status migrainosus; G62.9 Polyneuropathy, unspecified; G89.4 Chronic pain syndrome; Z90.49 Acquired absence of other specified parts of digestive tract; Z90.710 Acquired absence of both cervix and uterus; Z88.2 Allergy status to sulfonamides; Z88.8 Allergy status to other drugs, medicaments and biological substances; Z79.899 Other long term (current) drug therapy; Z98.890 Other specified postprocedural states
CPT/HCPCS: 36415; 71045; 80053; 83690; 83735; 85007; 85027; 87493 ×2; 96361; 96365; 96372; 96375; 99285; A9270 ×7; J0500; J2060; J3475 ×2; J7030; J7120 ×2; 80048; 81003; 83605; 85025; 85610; 86140; 87040; 87046; 87427; 87804; 97161-GP; 97165-GO; 99222; 99232; 99239; 99284; J0696; J1650; J2405; J7050; J8597

== ENCOUNTER 2022-08-01 08:23 | Emergency (ER) | payer MEDICARE, OTHER ==
[2022-08-01 08:45] VITALS: PULSE 88
[2022-08-01] MEDS ORDERED: Sodium Chloride 0.9% 10 ML Syringe FLUSH PRN (09:19)
[2022-08-01] MEDS ORDERED: Sodium Chloride 0.9% 1,000 ML IV ONE (09:19)
[2022-08-01 11:10] LABS: ESTIMATED GFR 96 mL/min (>60)
[2022-08-01] MEDS ORDERED: Hydrocortisone Sodium Succinate 100 MG/2 ML SDV IVPUSH ONE (11:32)
[2022-08-01] MEDS ORDERED: REMDESIVIR 100 MG in Sodium Chloride 0.9% 250 ML IV SCH (11:45)
[2022-08-01] MEDS ORDERED: REMDESIVIR 200 MG in Sodium Chloride 0.9% 250 ML IV ONE (12:30)
[2022-08-01 19:30] VITALS: BP 135/82
== END 2022-08-01 19:27 | disposition home or self-care (01) ==
LOC: JD.ED 08:23
DX: U07.1 COVID-19 (principal); Z88.2 Allergy status to sulfonamides; Z88.8 Allergy status to other drugs, medicaments and biological substances
CPT/HCPCS: 36415; 71045; 80053; 81003; 84145; 85025; 86140; 96361; 96365; 96375; 99284; J0248; J1720; J3490; J7030; J7050

== ENCOUNTER 2023-11-09 06:30 | Day surgery (SDC) | payer MEDICARE, OTHER ==
[~2023-11-09 06:30] MED LIST: Pregabalin 25 MG Cap PO SCH
[2023-11-09] MEDS ORDERED: Lactated Ringers 1,000 ML IV ONE ×2 (06:31→09:00)
[2023-11-09] MEDS ORDERED: Midazolam 1 MG/ML 2 ML SDV ONE (06:37)
[2023-11-09] MEDS ORDERED: Dexamethasone 4 MG/ML 5 ML MDV ONE (06:37)
[2023-11-09] MEDS ORDERED: Bupivacaine 0.5% 30 ML SDV ONE (06:38)
[2023-11-09] MEDS: Acetaminophen 325 MG Tab PO SCH (07:05)
[2023-11-09] MEDS: oxyCODONE ER 10 MG TAB.ER PO SCH (07:05)
[2023-11-09] MEDS ORDERED: Propofol 200 MG/20 ML SDV ONE (07:46)
[2023-11-09] MEDS ORDERED: fentaNYL 100 MCG/2 ML SDV ONE ×2 (07:46→09:18)
[2023-11-09] MEDS ORDERED: Rocuronium 50 MG/5 ML Vial ONE (07:47)
[2023-11-09] MEDS ORDERED: Lidocaine 2% 5 ML SDV ONE (07:57)
[2023-11-09] MEDS ORDERED: ceFAZolin 2 GM Vial ONE (08:05)
[2023-11-09] MEDS ORDERED: dexmedeTOMIDine HCl 200 MCG/2 ML SDV ONE (08:07)
[2023-11-09] MEDS ORDERED: Sugammadex Sodium 200 MG/2 ML VIAL IV ONE (08:51)
[2023-11-09] MEDS: Tranexamic Acid 1,000 MG/10 ML Vial ONE (08:56)
[2023-11-09] MEDS: Vancomycin 1 GM SDV ONE (08:56)
[2023-11-09] MEDS ORDERED: HYDROmorphone 0.5 MG/0.5 ML Syringe IVPUSH PRN (09:36)
[2023-11-09] MEDS ORDERED: Ondansetron 4 MG/2 ML SDV IVPUSH PRN (09:36)
[2023-11-09] MEDS ORDERED: fentaNYL 100 MCG/2 ML SDV IVPUSH PRN (09:36)
[2023-11-09 10:46] VITALS: BP 123/76; PULSE 78
[2023-11-09] MEDS: oxyCODONE 5 MG Tab PO SCH (10:50)
== END 2023-11-09 11:30 | disposition home or self-care (01) ==
LOC: JD.SDS 06:30
PROVIDERS: ATTEND Orthopaedic Surgery
DX: M19.011 Primary osteoarthritis, right shoulder (principal); F41.8 Other specified anxiety disorders; E78.00 Pure hypercholesterolemia, unspecified; Z87.891 Personal history of nicotine dependence; Z88.2 Allergy status to sulfonamides
CPT/HCPCS: 23472; 76000; 97110; A9270; C1713; C1769; C1776; J0665; J0690; J1100; J2250; J2704; J3010; J3360; J3370; J3490; J7120; 01638